=== PATIENT | male | born 1990 | race Caucasian/White ===

== ENCOUNTER 2016-09-22 22:13 | Emergency (ER) | payer MEDICAID ==
[2016-09-22 23:06] LABS: Hematocrit 41.1 % (42.0-52.0); Hemoglobin 13.9 gm/dL (13.5-18.0); Mean Cell Volume 83.7 fl (78-100); Mean Corpuscular Hemoglobin 28.3 pg (27-31); Mean Corpuscular Hgb Conc 33.8 g/dl (32-36); Mean Platelet Volume 10.5 fl (6.0-9.5); Neutrophil # 7.7 K/mm3 (1.3-6.0); Neutrophil % 71.1 % (42-75.0); Platelet Count 277 K/mm3 (150-450); Red Blood Count 4.91 M/mm3 (4.7-6.0); Red Cell Distribution Width 12.4 % (11.5-14.0); White Blood Count 10.8 K/mm3 (4.0-10.5)
--- NOTE | 2016-09-22 23:10 | ERNOTE ---
Upper Extremity HPI - General Extremities Pain Location: thumb: right, 2nd finger: right - swollen and painful Time Seen by Provider: 09/22/16 22:46 Source: patient, family Exam Limitations: no limitations - Immun/Allergies/Home Medications Immunizations: IMMUNIZATION HX Immunizations Up to Date Yes Allergies/Adverse Reactions: Allergies Allergy/AdvReac Type Severity Reaction Status Date / Time ketorolac [From Toradol] Allergy Verified 09/23/16 02:02 tramadol Allergy Verified 09/23/16 02:02 Home Medications: HOME MEDICATIONS Clindamycin HCl [Cleocin HCl] 300 mg PO QID 09/22/16 [Last Taken Unknown] HYDROcodone/ACETAMINOPHEN [[place] 5-325] 1 - 2 tab PO Q6H PRN 09/22/16 [Last Taken Unknown] Meloxicam [Mobic] 15 mg PO DAILY #14 tab 09/23/16 [Last Taken Unknown] - History of Present Illness Narrative: Pt states that his right index finger began to be swollen and painful a week ago. he was seen in [facility] and given clindamycin and hydrocodone/ apap. He has taken 3 days of the antibiotics and continues to worsen. He was told that he would have to see a plastic surgeon to have the abscess drained. Occurred: last week Severity: moderate Method of Injury: Reports: unknown Modifying Factors - (Improves): Denies: pain medication Modifying Factors - (Worsens): Reports: movement - pressure Other Injuries: Reports: none Prior Treament: Reports: recently seen, treated by physician Review of Systems - Review of Systems Constitutional: Absent: recent illness Musculoskeletal: Absent: joint pain, joint swelling Skin: Present: See HPI Neurological: Absent: numbness, tingling Hematologic/Lymphatic: Absent: easy bruising, easy bleeding Psych: Present: no symptoms reported - Patient's Past Medical History Patient History - Medical: No pertinent hx Patient History - Cardiac/Respiratory: No pertinent hx Patient History - Cancer: No Hx of Cancer Patient History - Other: None - Social History Living Situations: home Psych History: No pertinent hx Smoking Status: Current every day smoker Alcohol Use: none Drug Use: none - Immunizations Immunizations Up to Date: Yes Physical Exam - Physical Exam General Appearance: Present: wd/wn, alert, mild distress Head Exam: Present: normal inspection, no evidence of injury Eye Exam: Normal inspection: bilateral Respiratory: Present: no respiratory distress, no accessory muscle use Peripheral Pulses: N=norm/S=strong/W=weak/B=bound/A=absent: Radial (R): Normal Extremity Exam: Present: other - right thumb swollen at the distal phalanx/ pad. right index finger swollen at the middle phalanx/ pad. Both mildly fluctuant. Index finger has somewhat of a white area that has not come to a complete head Neurological Exam: Present: alert, oriented ED Progress - Results and Orders Patient's Lab Results:: I have reviewed the patient's lab results. Results and Orders: Laboratory Tests 09/22/16 23:00 WBC 10.8 H Hgb 13.9 Hct 41.1 L Plt Count 277 - Vital Signs Patient's Vital Signs:: I have reviewed the patient's vital signs. Vital Signs: Vital Signs 09/22/16 22:20 Temperature 36.3 C L Pulse Rate 91 Respiratory 12 Rate Blood Pressure 120/66 O2 Sat by Pulse 97 Oximetry - Progress/Reassessment Chief Complaint: Hand Injury/Pain Progress:: Improved Progress Note-Subjective: 09/23/16 01:28 Pt discharged with edwards and he states he has a few left at home from previous visit to ED Procedures Right 1st Digit Anesthesia: 2% Lidocaine, Digital Block I & D Prep: betadine prep Blade Size: 11 Findings and Actions: purulent drainage moderate, probed/breakup loculation, cultures obtained Estimated blood loss (ml): 10 Complications: Pt rama procedure well Right 2nd Digit Anesthesia: 2% Lidocaine, Digital Block I & D Prep: betadine prep Blade Size: 11 Findings and Actions: purulent drainage moderate, probed/breakup loculation Complications: Pt rama procedure well Departure Clinical Impression: Felon of finger of right hand - Departure Disposition: Home self-care Condition: Good Instructions: Fingertip Infection Additional Instructions: wash the wounds with warm soap and water twice a day for 3-5 days. Continue with current antibiotics. Seek further care if not improving in 3-5 days
[2016-09-23] MEDS ORDERED: LIDOCAINE HCL 20 ML VIAL ONE (00:40)
[2016-09-23] MEDS ORDERED: HYDROcodone/ACETAMINOPHEN 1 EACH TABLET PO ONE (01:17)
[2016-09-23] MEDS ORDERED: HYDROcodone/ACETAMINOPHEN 1 EACH TABLET ONE (01:18)
[2016-09-23 01:30] VITALS: BP 126/66
== END 2016-09-23 01:28 | disposition home or self-care (01) ==
LOC: ER 22:13
PROC: 0H9FXZZ Drainage of Right Hand Skin, External Approach (ICD-10-PCS; principal; 2016-09-22)
DX: L03.011 Cellulitis of right finger (principal); F17.200 Nicotine dependence, unspecified, uncomplicated

== ENCOUNTER 2016-09-23 01:54 | Emergency (ER) | payer MEDICAID ==
[2016-09-23 02:02] VITALS: BP 126/70
[2016-09-23] MEDS ORDERED: MELOXICAM 15 MG TABLET ONE (02:11)
--- NOTE | 2016-09-23 02:33 | ERNOTE ---
Upper Extremity HPI - General Extremities Pain Location: thumb: right, 2nd finger: right Time Seen by Provider: 09/23/16 02:05 Source: patient, family Exam Limitations: no limitations - Immun/Allergies/Home Medications Immunizations: IMMUNIZATION HX Immunizations Up to Date Yes Allergies/Adverse Reactions: Allergies Allergy/AdvReac Type Severity Reaction Status Date / Time ketorolac [From Toradol] Allergy Verified 09/23/16 02:02 tramadol Allergy Verified 09/23/16 02:02 Home Medications: HOME MEDICATIONS Clindamycin HCl [Cleocin HCl] 300 mg PO QID 09/22/16 [Last Taken Unknown] HYDROcodone/ACETAMINOPHEN [[place] 5-325] 1 - 2 tab PO Q6H PRN 09/22/16 [Last Taken Unknown] Meloxicam [Mobic] 15 mg PO DAILY #14 tab 09/23/16 [Last Taken Unknown] - History of Present Illness Narrative: Pt returns soon after being seen in this ED tonight. Pt is having continued pain in his hand. Pt states that his finger is more swollen than previously. Pt is holding his hand down with his left hand index and thumb circling the base of his finger, squeezing it tightly. Review of Systems - Narrative Narrative: See ROS from previous visit this date - Patient's Past Medical History Patient History - Medical: No pertinent hx Patient History - Cardiac/Respiratory: No pertinent hx Patient History - Cancer: No Hx of Cancer Patient History - Other: None - Social History Living Situations: home Psych History: No pertinent hx Alcohol Use: none Drug Use: none - Immunizations Immunizations Up to Date: Yes Physical Exam - Physical Exam General Appearance: Present: wd/wn, alert, mild distress Neurological Exam: Present: alert, oriented Skin Exam: Present: other - right thumb swelling is improved over last visit. some bruising is noted from procedure. Pt's points out "other spots" that have shown up proximal to the wound. These spots are the injection points of the ring block. ED Progress - Vital Signs Vital Signs: Vital Signs 09/23/16 09/23/16 01:28 01:58 Temperature 37.2 C 37 C Pulse Rate 80 Respiratory 18 Rate Blood Pressure 126/66 126/70 O2 Sat by Pulse 98 Oximetry - Progress/Reassessment Chief Complaint: Hand Injury/Pain Progress Note-Subjective: 09/23/16 02:28 When I bring to the patients attention that his squeezing of his finger/ thumb stop the blood flow out more than the flow in and increases the swelling, he then squeezes his hand just below both fingers. I told him not to squeeze his hand or arm at all unless he wants to put some gentle pressure on the fingers where the wounds from the I & D are. I educated him on how to keep his hand elevated and do not put pressure on the extremity. Departure Clinical Impression: Felon of finger of right hand - Departure Disposition: Home self-care Condition: Fair Instructions: Fingertip Infection Additional Instructions: give time for the pain medications to take effect. do not squeeze the hand or arm. Keep the hand/ arm elevated above your heart. Take both pain medications as directed. See a surgeon if not improving in 2-3 days. Prescriptions: Meloxicam [Mobic] 15 mg PO DAILY #14 tab
[2016-09-23] MEDS ORDERED: MELOXICAM 15 MG TABLET PO ONE (02:45)
== END 2016-09-23 02:25 | disposition home or self-care (01) ==
LOC: ER 01:54
DX: L03.011 Cellulitis of right finger (principal)